=== PATIENT | female | born 1960 | race Caucasian/White ===

== ENCOUNTER 2021-12-09 21:34 | Emergency (ER) | payer OTHER, MEDICAID ==
[~2021-12-09] VITALS: Ht 162.6 cm; Wt 68.0 kg
--- NOTE | 2021-12-09 21:38 | NUR ---
PT JUAN BLS. TAKEN TO BED 2
[2021-12-09 21:49] VITALS: BP 161/102
--- NOTE | 2021-12-09 21:51 | NUR ---
PT MOVED TO BED 8
--- NOTE | 2021-12-09 22:00 | NUR ---
61 Y/O F biba from homeless alf c/o elevated blood sugar. +fever, +chills, +n/v. pmh: DM, ketoacidosis, schizophrenia nka
[2021-12-09] MEDS ORDERED: NACL 0.9% 2,000 ML IV ONE (22:05)
--- NOTE | 2021-12-09 22:11 | NUR ---
X-Ray at bedside.
--- NOTE | 2021-12-09 22:13 | NUR ---
labs given to [employer].
--- NOTE | 2021-12-09 22:22 | NUR ---
LUZ MARINA Leonard at bedside for examination
[2021-12-09 22:38] LABS: BASOPHILS # (AUTO) 0.1 K/uL (0.00-0.22); BASOPHILS % (AUTO) 0.8 % (0.0-2.0); EOSINOPHILS % (AUTO) 0.2 % (0.0-4.0); HEMATOCRIT 38.1 % (36-48); HEMOGLOBIN 12.7 g/dL (12.0-16.0); LYMPHOCYTES # (AUTO) 1.7 K/uL (2.5-16.5); MEAN CORPUSCULAR HEMOGLOBIN 28 pg (27-31); MEAN CORPUSCULAR HGB CONC 33 g/dL (33-37); MEAN CORPUSCULAR VOLUME 83.6 fL (80-94); MONOCYTES # (AUTO) 0.5 K/uL (0.8-1.0); MONOCYTES % (AUTO) 5.2 % (1.7-9.3); NEUTROPHILS # (AUTO) 6.4 K/uL (1.8-7.7); NEUTROPHILS % (AUTO) 73.8 % (42.2-75.2); PLATELET COUNT (AUTO) 380 K/uL (140-450); RED BLOOD CELL COUNT(AUTO) 4.56 MIL/uL (4.20-5.40); RED CELL DISTRIBUTION WIDTH 13.4 % (11.6-13.7); WHITE BLOOD COUNT (AUTO) 8.7 K/uL (4.8-10.8)
[2021-12-09] MEDS ORDERED: cefTRIAXone 1,000 MG VIAL ONE (22:48)
[2021-12-09 23:13] LABS: ALBUMIN 2.9 g/dL (3.4-5.0); ANION GAP 12.1 (8-16); ASPARTATE AMINOTRANSFERASE 17 U/L (15-37); CARBON DIOXIDE 28.8 mmol/L (21-32); CHLORIDE 93 mmol/L (98-107); CREATININE 1.4 mg/dL (0.6-1.3); GFR ARICAN-AMERICAN 49 mL/min (>90); LIPASE 106 U/L (73-393); PHOSPHORUS 4.1 mg/dL (2.5-4.9); POTASSIUM 3.9 mmol/L (3.5-5.1); SODIUM SERUM 130 mmol/L (136-145); THYROID STIMULATING HORMONE 1.24 uIU/mL (0.34-3.74); TOTAL BILIRUBIN 0.3 mg/dL (0.0-1.0); UREA NITROGEN, BLOOD 31 mg/dL (7-18)
[2021-12-09 23:16] LABS: MAGNESIUM 1.9 mg/dL (1.8-2.4)
[2021-12-09 23:19] LABS: GLUCOSE 471 mg/dL (74-106)
[2021-12-09] MEDS ORDERED: INSULIN REGULAR, HUMAN 100 UNIT/ML VIAL IV ONE (23:25)
[2021-12-09] MEDS ORDERED: CEPH-588 PO (23:42)
--- NOTE | 2021-12-10 00:58 | NUR ---
spoke with patient about discharge. patient complaining about not having a place to go and not having medications, will give a homeless patient waiver form and provide further education. Also explained to patient that the ERMD will send patient home with proper medication to help control diabetes. patient understands these conditions but would like to speak with the doctor. ERMD made aware.
[2021-12-10 01:48] VITALS: BP 150/86
== END 2021-12-10 00:58 | disposition home or self-care (01) ==
LOC: MED 21:34
DX: E11.65 Type 2 diabetes mellitus with hyperglycemia (principal); Z20.822 Contact with and (suspected) exposure to COVID-19; F20.9 Schizophrenia, unspecified; Z79.899 Other long term (current) drug therapy
CPT/HCPCS: 36415; 36600; 71045; 80053; 82009; 82803; 82948; 83605; 83690; 83735; 84100; 84443; 84484; 85025; 87040; 87426; 96361; 96374; 96375; 99284; J0696; J1815

== ENCOUNTER 2021-12-10 08:02 | Emergency (ER) | payer OTHER, MEDICAID ==
[~2021-12-10] VITALS: Ht 160 cm; Wt 72.6 kg
[~2021-12-10 08:02] MED LIST: CEPH-588 PO
[2021-12-10 08:14] VITALS: BP 172/109
--- NOTE | 2021-12-10 08:20 | NUR ---
PT W/C ASSISTED TO BED 11.
--- NOTE | 2021-12-10 09:18 | NUR ---
61 y/o female, c/o n&v, weakness, abd pain with back pain that started last night. pt was seen here previously last night for same s/s and was told she was hyperglycemic. bs in triage was 385, non compliant with medications. a&o x4 states she is unable to ambulate at this time. lungs clear bl, heart rate even and regular. pt denies dysuria, hematuria, urinary frequency or retention. pt denies any fever, cp, sob, or cough at this time. pt states pain is 10/10 at this time. patient positioned for comfort. hob elevated. bed down. ermd made aware of pt. pmh: schizophrenia, dm2 nka med: non compliant
[2021-12-10 10:23] LABS: BASOPHILS # (AUTO) 0.1 K/uL (0.00-0.22); BASOPHILS % (AUTO) 1.3 % (0.0-2.0); EOSINOPHILS % (AUTO) 0.3 % (0.0-4.0); HEMATOCRIT 35.2 % (36-48); HEMOGLOBIN 11.7 g/dL (12.0-16.0); LYMPHOCYTES # (AUTO) 1.8 K/uL (2.5-16.5); LYMPHOCYTES % (AUTO) 17.9 % (20.5-51.1); MEAN CORPUSCULAR HEMOGLOBIN 28 pg (27-31); MEAN CORPUSCULAR HGB CONC 33 g/dL (33-37); MEAN CORPUSCULAR VOLUME 83.8 fL (80-94); MONOCYTES # (AUTO) 0.4 K/uL (0.8-1.0); MONOCYTES % (AUTO) 3.9 % (1.7-9.3); NEUTROPHILS # (AUTO) 7.7 K/uL (1.8-7.7); NEUTROPHILS % (AUTO) 76.6 % (42.2-75.2); PLATELET COUNT (AUTO) 335 K/uL (140-450); RED CELL DISTRIBUTION WIDTH 13.1 % (11.6-13.7); WHITE BLOOD COUNT (AUTO) 10.1 K/uL (4.8-10.8)
[2021-12-10 10:23] LABS: APPEARANCE,URINE SL CLOUDY (CLEAR); BILIRUBIN,URINE NEGATIVE (NEGATIVE); BLOOD, URINE 2+ (NEGATIVE); COLOR,URINE YELLOW (YELLOW); LEUKOCYTE ESTERASE ,URINE NEGATIVE (NEGATIVE); NITRITE, URINE NEGATIVE (NEGATIVE); UGLUCOSE 3+ (NEGATIVE)
[2021-12-10 10:39] LABS: BARBITURATE, URINE NEGATIVE ng/ml (NEG <=200); BENZODIAZEPINE, URINE NEGATIVE ng/mL (NEG <=200); CANNABINOID, URINE POSITIVE ng/mL (NEG <=50); COCAINE, URINE NEGATIVE ng/mL (NEG <=300); OPIATE, URINE NEGATIVE ng/mL (NEG <=2000); PHENCYCLIDINE SCREEN,URINE NEGATIVE ng/mL (NEG <=25)
[2021-12-10 10:55] LABS: ALBUMIN 2.5 g/dL (3.4-5.0); ANION GAP 15.1 (8-16); CARBON DIOXIDE 25.5 mmol/L (21-32); CREATININE 1.4 mg/dL (0.6-1.3); POTASSIUM 3.6 mmol/L (3.5-5.1); TOTAL BILIRUBIN 0.2 mg/dL (0.0-1.0)
[2021-12-10 11:09] LABS: CALCIUM OXALATE CRYSTALS,UR None Seen /HPF (None Seen); COARSE GRANULAR CASTS,URINE None Seen /LPF (None Seen); FINE GRANULAR CASTS,URINE None Seen /LPF (None Seen); HYALINE CASTS, URINE None Seen /LPF (None Seen); OTHER CRYSTALS,URINE None Seen /HPF (None Seen); TRICHOMONAS,URINE None Seen /HPF (None Seen); TRIPLE PHOSPHATE CRYSTAL,UR None Seen /HPF (None Seen); URIC ACID CRYSTALS,URINE None Seen /HPF (None Seen); URINE AMORPHOUS URATE None Seen /HPF (None Seen); WBC,URINE 0-5 /HPF (0-5); YEAST,URINE None Seen /HPF (None Seen)
[2021-12-10 11:10] LABS: OTHER CASTS, URINE None Seen /LPF (None Seen); RED BLOOD CELL CASTS,URINE None Seen /LPF (None Seen); WAXY CASTS,URINE None Seen /LPF (None Seen)
[2021-12-10] MEDS ORDERED: KCL 20 MEQ/WATER INJ PREMIX 100 ML IV ONE (11:20)
[2021-12-10] MEDS ORDERED: NACL 0.9% 2,000 ML IV ONE (11:20)
[2021-12-10] MEDS ORDERED: INSULIN REGULAR, HUMAN 100 UNIT in NACL 0.9% 100 ML IV SCH ×2 (11:40)
[2021-12-10] MEDS ORDERED: DEXTROSE 50% 50 ML SYR IVP PRN (11:40)
--- NOTE | 2021-12-10 11:55 | NUR ---
charo swabbed and given to phleb
[2021-12-10] MEDS ORDERED: POTASSIUM CHLORIDE 10 MEQ TABER PO ONE (12:25)
[2021-12-10] MEDS ORDERED: INSULIN REGULAR, HUMAN 100 UNIT/ML VIAL SUBQ ONE (12:25)
[2021-12-10] MEDS: BLOOD GLUCOSE MONITORING 1 DEV DEV FS SCH ×3 (12:40→13:40)
--- NOTE | 2021-12-10 13:18 | NUR ---
pt will be transferred to [facility], bed 2142, nurse: #[phone] #[id number]. requesting we fax charo dinero to [phone].
[2021-12-10 13:48] VITALS: BP 138/70
--- NOTE | 2021-12-10 13:50 | NUR ---
Patient to be transferred to [facility] room 2142. Is being transferred due to dka. Receiving facility has accepting physician and available space. ER physician has signed transfer form. Patient or responsible libertarian has agreed to transfer and signed form. Patient belongings inventoried and will be sent with patient. Copy of nursing notes, lab reports, EKG, Physicians Orders and X-rays to be sent with patient. Report called to noe chung at receiving facility. [id number] ambulance service has been called for transfer. ETA is 30.
== END 2021-12-10 13:48 | disposition short-term general hospital (02) ==
LOC: MED 08:02
DX: E11.10 Type 2 diabetes mellitus with ketoacidosis without coma (principal); Z20.822 Contact with and (suspected) exposure to COVID-19; E11.65 Type 2 diabetes mellitus with hyperglycemia; F20.9 Schizophrenia, unspecified
CPT/HCPCS: 36415; 80053; 80305; 81001; 85025; 87086; 87426; 96360; 96361; 96372; 99291; 99292; J1815; 99282; J7030